=== PATIENT | female | born 1985 | race Caucasian/White ===

== ENCOUNTER 2024-04-22 07:16 | Emergency (ER) | payer OTHER ==
[2024-04-22] MEDS ORDERED: LEVALBUTEROL 1.25 MG/3 ML NEB ONE (07:46)
[2024-04-22] MEDS ORDERED: NA CHLORIDE 0.9% 1,000 ML ONE (07:47)
--- NOTE | 2024-04-22 07:54 | RAD REPORT ---
EXAM: Chest Single View HISTORY: DYSPNEA COMPARISON: None. FINDINGS: LUNGS/PLEURA: The lungs are clear. No pleural effusions or pneumothorax. No pulmonary edema. MEDIASTINUM: The mediastinal silhouette is within normal limits. CARDIAC: The cardiac silhouette is within normal limits. UPPER ABDOMEN: No significant abnormality. BONES: No acute abnormality. LINES/TUBES/OTHER: N/A IMPRESSION: No evidence of acute cardiopulmonary disease.
[2024-04-22 08:03] LABS: Absolute Lymphocytes (CBC) 1.4 K/uL (0.7-4.9); Absolute Monocytes 0.6 K/uL (0.1-1.3); Absolute Neutrophil 3.9 K/uL (1.8-8.0); Basophils % 0.6 % (0-1.3); Eosinophils % 0.8 % (0-4.4); Hematocrit 32.6 % (36.0-45.0); Hemoglobin 10.2 g/dL (12.0-15.0); Lymphocytes % 23.1 % (15.3-44.8); MCHC 31.3 g/dL (32.0-36.0); MCV 73.4 fL (80-100); MPV 8.5 fL (7.6-11.3); Monocytes % 9.8 % (3.3-12.3); Neutrophils % 65.7 % (41.7-73.7); Platelets 288 thou/uL (152-406); RBC Red Blood Cell Count 4.45 M/uL (3.86-4.86); Red Cell Distribution Width 20.1 % (12.1-15.2)
[2024-04-22 08:12] LABS: SARS-CoV-2 Antigen CONTROL BLUE LINE VIS/BG OK; SARS-CoV-2 Antigen Rapid Res Negative (Negative)
[2024-04-22 08:18] LABS: ALT/SGPT 31 U/L (13-56); AST/SGOT 25 U/L (15-37); Albumin 4.1 g/dL (3.4-5.0); Alkaline Phosphatase 103 U/L (45-117); Anion Gap 8.4 mEq/L (5.0-15.0); BUN Blood Urea Nitrogen 14 mg/dL (7-18); Bicarbonate 27 mEq/L (21-32); Bilirubin Total 0.3 mg/dL (0.2-1.0); Globulin 4.2 g/dL (2.3-3.5); Glomerular Filtration Rate 121 ml/min (=/>90); Glucose Level 87 mg/dL (74-106); Potassium 3.4 mEq/L (3.5-5.1); Protein, Total 8.3 g/dL (6.4-8.2); Sodium Level 137 mEq/L (136-145)
[2024-04-22 08:21] LABS: Bilirubin Direct < 0.2 mg/dL (0-0.2); Bilirubin Indirect, Calculated 0.1 mg/dL (0.2-0.8)
--- NOTE | 2024-04-22 10:03 | ER ---
Nurse's Notes [facility] Name: Lesa Walton Age: 38 yrs Sex: Female : 1985 Arrival Date: 04/22/2024 Time: 07:16 Bed 14 [facility] MD: Diagnosis: Unspecified asthma with (acute) exacerbation Presentation: 04/22 07:29 Ebola Screen: Patient denies travel to an Ebola-affected area in the 21 days before 1 illness onset. Initial Sepsis Screen: Does the patient meet any 2 criteria? No. Patient's initial sepsis screen is negative. Does the patient have a suspected source of infection? No. Patient's initial sepsis screen is negative. Risk Assessment: Do you want to hurt yourself or someone else? Patient reports no desire to harm self or others. 07:29 Method Of Arrival: Ambulatory 1 07:30 Chief complaint: Patient states: Sore throat, SOB, fatigue, not feeling well, not ll1 eating well. Coronavirus screen: Client denies travel out of the [place] in the last 14 days. fatigue, headache, muscle pain, sore throat, Client presents with at least one sign or symptom that may indicate coronavirus-19. Standard/surgical mask placed on the client. Onset of symptoms. 07:43 Acuity: LICO 3 ll1 08:58 Onset of symptoms was April 21, 2024. 1 Triage Assessment: 07:30 General: Appears uncomfortable, Behavior is cooperative, appropriate for age, anxious. ll1 EENT: Reports pain when swallowing. Respiratory: Reports shortness of breath cough that is. 10:19 Respiratory: the patient has mild shortness of breath. 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 - Infectious Disease History:: Denies. - Family history:: not pertinent. - Hospitalizations: : No recent hospitalization is reported. - Social history:: Smoking status: Patient reports the use of cigarette tobacco products, denies chronic smoking, but will smoke occasionally. Screenin:[address] [facility] ED Fall Risk Assessment (Adult) History of falling in the last 3 months, ll1 including since admission No falls in past 3 months (0 pts) Confusion or Disorientation No (0 pts) Intoxicated or Sedated No (0 pts) Impaired Gait No (0 pts) Mobility Assist Device Used No (0 pt) Altered Elimination No (0 pt) Score/Fall Risk Level 0 - 2 = Low Risk Maintained a safe environment, Hourly rounding (assess needs \T\ fall precautionary measures) done. Abuse screen: Denies threats or abuse. Nutritional screening: No deficits noted. Tuberculosis screening: No symptoms or risk factors identified. Assessment: 08:44 Reassessment: No changes from previously documented assessment. Patient and/or family ll1 updated on plan of care and expected duration. Pain level reassessed. Patient is alert, oriented x 3, equal unlabored respirations, skin warm/dry/pink. 10:00 Reassessment: No changes from previously documented assessment. Patient and/or family ll1 updated on plan of care and expected duration. Pain level reassessed. Patient is alert, oriented x 3, equal unlabored respirations, skin warm/dry/pink. 10:18 Respiratory: Airway Respiratory effort is even, unlabored, Breath sounds are clear. me1 10:18 Cardiovascular: Rhythm is regular. me1 Vital Signs: 07:43 BP 151 / 101; Pulse 88; Resp 17; Temp 97.4; Pulse Ox 100% on R/A; ll1 10:18 BP 142 / 89; Pulse 87; Resp 16; Temp 98.1; Pulse Ox 100% ; me1 ED Course: 07:20 Patient arrived in ED. im 07:22 Vinya Baker MD is Attending Physician. rn 07:29 Shayna Brown, COLBY is Primary Nurse. ll1 07:29 Arm band placed on Patient placed in an exam room, on a stretcher. ll1 07:30 Provided Education on: ER procedures and process. ll1 07:43 Triage completed. ll1 07:43 Flu Sent. ll1 07:43 SARS-COV-2 Antigen Rapid Sent. ll1 07:43 Strep Sent. ll1 07:50 Initial lab(s) drawn, by me, sent to lab. Inserted saline lock: 20 gauge in right ll1 antecubital area, using aseptic technique. Blood collected. Flushed with 10 mL NS. 07:52 XRAY Chest (1 view) In Process Unspecified. EDMS 09:01 Patient has correct armband on for positive identification. Bed in low position. Client ll1 placed on continuous cardiac and pulse oximetry monitoring. NIBP monitoring applied. 10:18 No provider procedures requiring assistance completed. Patient did not have IV access nv1 during this emergency room visit. Administered Medications: 07:53 Drug: Levalbuterol Inhalation 1.25 mg Inhalation once Route: Inhalation; 1 08:44 Follow up: Response: No adverse reaction 1 07:53 Drug: NS 0.9% IV 1000 ml IV at 1000 ml once; to be given as a bolus over 60 minutes 1 Route: IV; Rate: 1000 ml; Site: right antecubital; 08:44 Follow up: Response: No adverse reaction; IV Status: Completed infusion; IV Intake: ll1 1000ml Medication: 09:01 VIS not applicable for this client. 1 Intake: 08:44 IV: 1000ml; Total: 1000ml. [facility] Outcome: 10:03 Discharge ordered by . rn 10:19 Discharged to home ambulatory, with family, me1 10:19 Condition: stable 10:19 Discharge instructions given to patient, Instructed on discharge instructions, follow up and referral plans. medication usage, Demonstrated understanding of instructions, follow-up care, medications, Prescriptions given X 1, 10:19 Patient left the ED. me1 Signatures: Dispatcher [employer] EDGA Vinay Baker MD MD rn Lewis, Lynsay, RN RN 1 Madhavi Barragan Michelle RN RN nv1
--- NOTE | 2024-04-22 10:03 | EDPHYS ---
Physician Documentation [facility] Name: Lesa Walton Age: 38 yrs Sex: Female : 1985 Arrival Date: 04/22/2024 Time: 07:16 Bed 14 Private MD: ED Physician Vinay Baker HPI: 04/22 08:08 This 38 yrs old Female presents to ER via Ambulatory with complaints of Shortness Of rn Breath. 08:08 The patient has shortness of breath at rest, with light activity. Onset: The rn symptoms/episode began/occurred 2 day(s) ago. Duration: The symptoms are intermittent. The patient's shortness of breath is aggravated by exertion, light activity. Severity of symptoms: At their worst the symptoms were mild in the emergency department the symptoms are unchanged. The patient has experienced similar episodes in the past. Patient reports has history of asthma, has been using her albuterol inhaler and only helping for short periods. Reports subjective fever and chills with productive cough for 2 days. No hemoptysis. Patient reports history of lung and liver cancer but states she has chosen not to receive treatment. Patient also reports has not taken her psychiatric medications today.. 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 - Infectious Disease History:: Denies. - Family history:: not pertinent. - Hospitalizations: : No recent hospitalization is reported. - Social history:: Smoking status: Patient reports the use of cigarette tobacco products, denies chronic smoking, but will smoke occasionally. ROS: 08:08 Constitutional: Negative for fever, chills, and weight loss, Cardiovascular: Negative rn for chest pain, palpitations, and edema, Respiratory: Positive for shortness of breath and cough Abdomen/GI: Negative for abdominal pain, diarrhea, and constipation, negative for blood in stool Back: Negative for injury and pain, MS/Extremity: Negative for injury and deformity, Skin: Negative for injury, rash, and discoloration, Neuro: Reports generalized weakness and malaise Exam: 08:08 Constitutional: This is a well developed, well nourished patient who is awake, alert, rn seems anxious and pressured speech Head/Face: Normocephalic, atraumatic. ENT: Dry mucous membranes Neck: No meningismus Cardiovascular: Regular rate and rhythm. No pulse deficits. Respiratory: No increased work of breathing, faint expiratory wheezing noted bilaterally, no retractions Abdomen/GI: Soft, non-tender MS/ Extremity: Pulses equal, no cyanosis. Neuro: Awake and alert, GCS 15 Vital Signs: 07:43 BP 151 / 101; Pulse 88; Resp 17; Temp 97.4; Pulse Ox 100% on R/A; ll1 10:18 BP 142 / 89; Pulse 87; Resp 16; Temp 98.1; Pulse Ox 100% ; me1 MDM: 07:22 Medical Screening Exam initiated rn 10:01 Differential diagnosis: Anemia Anxiety Reaction pneumonia, Pneumothorax. Data reviewed: rn vital signs, nurses notes, lab test result(s), radiologic studies, plain films, and as a result, I will discharge patient. Counseling: I had a detailed discussion with the patient and/or guardian regarding the historical points, exam findings, and any diagnostic results supporting the discharge/admit diagnosis, lab results, radiology results, the need for outpatient follow up, to return to the emergency department if symptoms worsen or persist or if there are any questions or concerns that arise at home. Special discussion: I discussed with the patient/guardian in detail that at this point there is no indication for admission to the hospital. It is understood, however, that if the symptoms persist or worsen the patient needs to return immediately for re-evaluation. ED course: Patient improved after nebulizer treatment. Chest x-ray negative for pneumonia or pneumothorax per my interpretation. Patient requesting to go home. Will discharge home with prednisone for asthma exacerbation. Labs otherwise unremarkable, discussed results with patient and she states she is chronically anemic and is aware of abnormalities.. 04/22 07:36 Order name: Strep rn 04/22 07:36 Order name: CBC with Diff rn 04/22 07:36 Order name: Basic Metabolic Panel; Complete Time: 09:58 rn 04/22 07:36 Order name: LFT's; Complete Time: 09:58 rn 04/22 07:36 Order name: Flu; Complete Time: 09:58 rn 04/22 07:36 Order name: SARS-COV-2 Antigen Rapid; Complete Time: 09:58 rn 04/22 08:15 Order name: Throat Culture EDDC 04/22 07:23 Order name: XRAY Chest (1 view); Complete Time: 08:00 rn 04/22 07:36 Order name: IV Start; Complete Time: 07:56 rn Administered Medications: 07:53 Drug: Levalbuterol Inhalation 1.25 mg Inhalation once Route: Inhalation; ll1 08:44 Follow up: Response: No adverse reaction ll1 07:53 Drug: NS 0.9% IV 1000 ml IV at 1000 ml once; to be given as a bolus over 60 minutes ll1 Route: IV; Rate: 1000 ml; Site: right antecubital; 08:44 Follow up: Response: No adverse reaction; IV Status: Completed infusion; IV Intake: ll1 1000ml Disposition Summary: 04/22/24 10:03 Discharge Ordered Notes: Location: Home rn Problem: an acute exacerbation rn Symptoms: have improved rn Condition: Stable rn Diagnosis - Unspecified asthma with (acute) exacerbation rn Followup: rn - With: Private Physician - When: As needed - Reason: Recheck today's complaints, Re-evaluation by your physician Discharge Instructions: - Discharge Summary Sheet rn - Asthma, Adult rn Forms: - Medication Reconciliation Form rn - Antibiotic awake overnight counselor - Prescription Opioid Use rn - Patient Portal Instructions rn - Leadership Thank You Letter rn Prescriptions: - Prednisone 20 mg Oral Tablet - take 3 tablets ORAL route once daily for 5 days; 15 tablet; Refills: 0, Product rn Selection Permitted Signatures: Dispatcher [employer] Vinay Garcia MD MD rn Lewis, Lynsay, RN RN ll1
[2024-04-22 12:11] LABS: Anisocytosis 1+; Blood Morphology Comment NOTED (NOT SEEN); Microcytosis 1+; Platelet Estimate ADEQ; White Blood Cell Scan OK (OK)
[2024-04-22 12:58] VITALS: O2SAT 100
[2024-04-22 12:59] VITALS: BP 142/89; TEMP 98.1
== END 2024-04-22 10:19 | disposition home or self-care (01) ==
LOC: ER 07:16
DX: J44.1 Chronic obstructive pulmonary disease with (acute) exacerbation (principal); F17.210 Nicotine dependence, cigarettes, uncomplicated; Z11.52 Encounter for screening for COVID-19
CPT/HCPCS: 87070; 85025; 80048; 36415; 80076; 87081; 87804 ×2; 71045; 87811; J7614; J7030